=== PATIENT | male | born 1965 | race Caucasian/White ===

== ENCOUNTER → 2020-08-17 | Outpatient (CLI) | payer OTHER ==
[~2020-08-17] VITALS: Ht 73 cm; Wt 122.7 kg
[~2020-08-17] MED LIST: BAMLANIVIMAB (NON FORM) 700 MG in NS (IVPB) 250 ML IV ONE; CEFP250T2 PO; DOXY100C2 PO; EPINEPHrine INJECTION 1 MG/ML AMP IM PRN; HYDR-2997 PO; METO10TA3 PO; PRX10T PO; diphenhydrAMINE 50 MG/ML INJ (BENADRYL) IV PRN
[2020-08-17 12:22] VITALS: BP 195/95
[2020-08-17 14:17] VITALS: BP 157/86
== END ==
LOC: INFUSION 12:28
PROVIDERS: ATTEND Emergency Medicine
DX: U07.1 COVID-19 (principal)

== ENCOUNTER → 2020-08-17 | Outpatient (CLI) | payer OTHER ==
[~2020-08-17] MED LIST changes: -BAMLANIVIMAB (NON FORM) 700 MG in NS (IVPB) 250 ML IV ONE; -EPINEPHrine INJECTION 1 MG/ML AMP IM PRN; -diphenhydrAMINE 50 MG/ML INJ (BENADRYL) IV PRN
== END ==
LOC: LABNPT 07:52
PROVIDERS: ATTEND Emergency Medicine
DX: U07.1 COVID-19 (principal)
CPT/HCPCS: 87635

== ENCOUNTER → 2021-01-09 | Outpatient (CLI) | payer OTHER ==
--- NOTE | 2021-01-09 15:22 | Diagnostic Imaging Report ---
INDICATION: Injury to the right foot. TIME OF EXAM: 1:40 PM 3 views right foot were obtained. FINDINGS: Metatarsals appear to be intact. Phalanges appear intact and no fractures are seen. Midfoot and hindfoot are unremarkable. IMPRESSION: No acute bony abnormality is detected. Dictated by: Dictated on workstation # [id number]
== END ==
LOC: RAD 13:07
PROVIDERS: ATTEND Family Medicine
DX: S99.921A Unspecified injury of right foot, initial encounter (principal); X58.XXXA Exposure to other specified factors, initial encounter
CPT/HCPCS: 73630